=== PATIENT | female | born 1995 | race Hispanic/Latino ===

== ENCOUNTER 2022-12-25 10:19 | Emergency (ER) | payer SELFPAY ==
[2022-12-25] MEDS ORDERED: HYDROcodone/Acetaminophen 10/325 mg Tablet ONE (11:11)
== END 2022-12-25 11:46 | disposition home or self-care (01) ==
LOC: ERS 10:19
DX: L03.116 Cellulitis of left lower limb (principal)

== ENCOUNTER 2022-12-27 15:17 | Emergency (ER) | payer SELFPAY ==
[2022-12-27 16:04] LABS: #Basophils 0.1 thou/uL (0.0-0.2); #Eosinphils 1.2 thou/uL (0.0-0.7); #Lymphocytes 2.1 thou/uL (1.20-3.40); #Monocytes 0.5 thou/uL (0.11-0.59); #Neutrophils 7.2 thou/uL (1.40-6.50); %Basophils 0.6 % (0.0-1.0); %Eosinophils 11.2 % (0.0-10.0); %Monocytes 4.8 % (0.0-10.0); %Neutrophils 64.4 % (42.0-75.0); Hemoglobin 13.1 g/dL (12.0-16.0); Mean Corpuscular HGB CONC 32.6 g/dL (32.0-36.0); Mean Corpuscular Hemoglobin 31.2 pg (27.0-31.0); Mean Corpuscular Volume 95.8 fl (78.0-98.0); Mean Platelet Volume 7.1 fL (7.4-10.4); Platelet Count 365 10x3/uL (130-400); RBC Distribution Width 12.6 % (11.5-14.5); Red Blood Cell (RBC) Count 4.19 mill/uL (4.20-5.40); White Blood Cell (WBC) Count 11.1 10x3/uL (4.8-10.8)
[2022-12-27 16:45] LABS: ALT (SGPT) 11 U/L (8-55); AST (SGOT) 18 U/L (5-34); Albumin 3.4 g/dL (3.5-5.0); Alkaline Phosphatase 56 U/L (40-110); Anion Gap 13 mmol/L (10-20); BUN (Urea Nitrogen) 9 mg/dL (7.0-18.7); Bilirubin, Total 0.2 mg/dL (0.2-1.2); Calc. Creatinine Clearance 0 mL/min (70-130); Calcium 8.8 mg/dL (7.8-10.44); Carbon Dioxide 21 mmol/L (22-29); Chloride 107 mmol/L (98-107); Estimated GFR 116; Globulin 2.5 g/dL (2.4-3.5); Glucose 129 mg/dL (70-105); Potassium 3.9 mmol/L (3.5-5.1); Protein, Total 5.9 g/dL (6.0-8.3); Sodium 137 mmol/L (136-145)
[2022-12-27] MEDS ORDERED: Ketorolac Tromethamine 30 MG/ML VIAL ONE (17:07)
== END 2022-12-27 18:00 | disposition home or self-care (01) ==
LOC: ERS 15:17
DX: L03.116 Cellulitis of left lower limb (principal)
CPT/HCPCS: 36415; 80053; 83605; 85025; 87040; 96372; J1885

== ENCOUNTER 2024-03-20 13:04 | Emergency (ER) | payer SELFPAY ==
[2024-03-20 13:38] LABS: #Basophils 0.09 10x3/uL (0.0-0.2); %Basophils 0.7 % (0.0-1.0); %Eosinophils 3.4 % (0.0-10.0); %Monocytes 7.2 % (0.0-10.0); %Neutrophils 71.3 % (42.0-75.0); Hematocrit 42.1 % (36.0-47.0); Hemoglobin 13.4 g/dL (12.0-16.0); Mean Corpuscular HGB CONC 31.8 g/dL (32.0-36.0); Mean Corpuscular Hemoglobin 29.2 pg (27.0-31.0); Mean Corpuscular Volume 91.7 fL (78.0-98.0); Mean Platelet Volume 9.9 fL (7.4-10.4); Platelet Count 419 10x3/uL (130-400); RBC Distribution Width 12.1 % (11.5-14.5); Red Blood Cell (RBC) Count 4.59 mill/uL (4.20-5.40)
[2024-03-20 13:49] LABS: ALT (SGPT) 17 U/L (8-55); AST (SGOT) 14 U/L (5-34); Albumin 4.1 g/dL (3.5-5.0); Alkaline Phosphatase 70 U/L (40-110); Anion Gap 15 mmol/L (10-20); BUN (Urea Nitrogen) 8 mg/dL (7.0-18.7); Bilirubin, Total 0.4 mg/dL (0.2-1.2); Calc. Creatinine Clearance 0 mL/min (70-130); Calcium 9.2 mg/dL (7.8-10.44); Carbon Dioxide 23 mmol/L (22-29); Chloride 107 mmol/L (98-107); Estimated GFR 91; Globulin 3.1 g/dL (2.4-3.5); Glucose 98 mg/dL (70-105); Potassium 3.5 mmol/L (3.5-5.1); Protein, Total 7.2 g/dL (6.0-8.3); Sodium 141 mmol/L (136-145)
[2024-03-20] MEDS ORDERED: Ketorolac Tromethamine 30 MG (1 mL) VIAL ONE (14:12)
[2024-03-20] MEDS ORDERED: Ondansetron PF 4 MG/2 ML Vial ONE (14:12)
[2024-03-20] MEDS ORDERED: Morphine 4 MG/ML VIAL ONE ×2 (14:12→16:12)
[2024-03-20 14:44] LABS: BHCG - Serum Negative (NEGATIVE); Pregs Control Background? CLEAR/WHITE (CLR/WHITE); Pregs Control Bar Appear? YES (CONTROL BAR)
[2024-03-20 17:04] LABS: Bilirubin Negative (Negative); Blood, Urine 3+ (Negative); CAUTI Indications for Culture Dysuria,urgency,freq; Clarity Clear (Clear); Glucose, Urine (Dipstick) Normal (Negative); Ketone, Urine Negative (Negative); Leukocyte Negative Leu/uL (Negative); Nitrite Negative (Negative); Protein, Urine (Dipstick) Negative (Neg-Trace); RBC/HPF 21-50 HPF (0-3); Specific Gravity, Urine 1.012 (1.002-1.036); Squamous Epithelial 0-3 HPF (0-3); Urobilinogen Normal mg/dL (Less than 2); WBC/HPF 0-3 HPF (0-3); pH, Urine 6.5 (5.0-9.0)
[2024-03-20 17:06] LABS: Bacteria/HPF 1+ HPF (None Seen)
[2024-03-20 17:07] LABS: Urine Culture Reflex No No
== END 2024-03-20 17:14 | disposition home or self-care (01) ==
LOC: ERS 13:04
DX: N13.2 Hydronephrosis with renal and ureteral calculous obstruction (principal)
CPT/HCPCS: 36415; 74176; 80053; 81001; 83690; 84703; 85025; 96374; 96375; 96376; J1885; J2270; J2405

== ENCOUNTER 2025-04-16 07:59 | Emergency (ER) | payer OTHER, SELFPAY ==
[2025-04-16] MEDS ORDERED: Glucagon 1 MG/ML KIT ONE (08:11)
[2025-04-16 08:17] LABS: #Basophils 0.13 10x3/uL (0.0-0.2); #Eosinophils 1.16 10x3/uL (0.0-0.7); #Monocytes 1.17 10x3/uL (0.11-0.59); #Neutrophils 9.18 10x3/uL (1.40-6.50); %Basophils 0.9 % (0.0-1.0); %Eosinophils 8.2 % (0.0-10.0); %Lymphocytes 17.8 % (21.0-51.0); %Monocytes 8.2 % (0.0-10.0); %Neutrophils 64.7 % (42.0-75.0); Hematocrit 42.7 % (36.0-47.0); Hemoglobin 12.8 g/dL (12.0-16.0); Mean Corpuscular Hemoglobin 26.8 pg (27.0-31.0); Mean Corpuscular Volume 89.5 fL (78.0-98.0); Platelet Count 443 10x3/uL (130-400); Red Blood Cell (RBC) Count 4.77 mill/uL (4.20-5.40); White Blood Cell (WBC) Count 14.19 10x3/uL (4.8-10.8)
[2025-04-16 08:37] LABS: BHCG - Serum Negative (NEGATIVE); Pregs Control Background? CLEAR/WHITE (CLR/WHITE); Pregs Control Bar Appear? YES (CONTROL BAR)
[2025-04-16 08:40] LABS: ALT (SGPT) 52 U/L (Less than 34); AST (SGOT) 54 U/L (11-34); Albumin 4.5 g/dL (3.1-4.5); Alkaline Phosphatase 68 U/L (40-110); Anion Gap 14 mmol/L (10-20); BUN (Urea Nitrogen) 13 mg/dL (7.0-18.7); Bilirubin, Total 1.0 mg/dL (0.3-1.2); Calc. Creatinine Clearance 0 mL/min (70-130); Calcium 9.4 mg/dL (7.8-10.44); Carbon Dioxide 25 mmol/L (22-29); Chloride 108 mmol/L (98-107); Globulin 3.7 g/dL (2.4-3.5); Glucose 95 mg/dL (70-105); Lipase 16 U/L (8-78); Potassium 3.6 mmol/L (3.5-5.1); Sodium 143 mmol/L (136-145)
[2025-04-16] MEDS ORDERED: Ondansetron PF 4 MG/2 ML Vial ONE (09:18)
== END 2025-04-16 10:45 | disposition home or self-care (01) ==
LOC: ERS 07:59
DX: T18.128A Food in esophagus causing other injury, initial encounter (principal); W44.F3XA Food entering into or through a natural orifice, initial encounter
CPT/HCPCS: 71045; 80053; 83690; 84703; 85025; 96374; 96375; J1611; J2405